=== PATIENT | male | born 1955 | race Two or more races ===

== ENCOUNTER 2020-05-21 17:01 | Emergency (ER) | payer OTHER ==
[~2020-05-21] VITALS: Ht 170.2 cm; Wt 74.4 kg
[2020-05-21] MEDS ORDERED: GLUMETZA500 MG (17:20)
[2020-05-21] MEDS ORDERED: JANUVIA50 MG (17:20)
[2020-05-21] MEDS ORDERED: MELATONIN 10 M1 EACH PO (23:40)
[2020-05-21] MEDS ORDERED: VITAMIN D3-ALO1 EACH PO (23:40)
[2020-05-21] MEDS ORDERED: IVERMECTIN3 MG PO (23:40)
[2020-05-21] MEDS ORDERED: ACETAMINOPHEN650 M2 PO (23:40)
[2020-05-21] MEDS ORDERED: AZITHROMYCIN250 MG PO (23:40)
[2020-05-21] MEDS ORDERED: ZINC SULFATE220 M2 PO (23:40)
[2020-05-21] MEDS ORDERED: VITAMIN C WIT1000 MG PO (23:40)
[2020-05-21] MEDS ORDERED: DECADRON6 MG PO (23:40)
== END 2020-05-21 23:28 | disposition home or self-care (01) ==
LOC: ER 17:01
DX: U07.1 COVID-19 (principal); J12.89 Other viral pneumonia; B33.8 Other specified viral diseases; J06.9 Acute upper respiratory infection, unspecified

== ENCOUNTER 2021-03-27 07:37 | Outpatient (CLI) | payer OTHER ==
[~2021-03-27 07:37] MED LIST: ACETAMINOPHEN650 M2 PO; AZITHROMYCIN250 MG PO; DECADRON6 MG PO; GLUMETZA500 MG; IVERMECTIN3 MG PO; JANUVIA50 MG; MELATONIN 10 M1 EACH PO; VITAMIN C WIT1000 MG PO; VITAMIN D3-ALO1 EACH PO; ZINC SULFATE220 M2 PO
== END 2021-03-27 07:42 | disposition home or self-care (01) ==
LOC: SONOGRAMA 07:37 → MAMO-SONO 07:45
PROVIDERS: ATTEND Internal Medicine Cardiovascular Disease
DX: N13.39 Other hydronephrosis (principal); R10.84 Generalized abdominal pain

== ENCOUNTER 2021-04-30 10:32 | Outpatient (CLI) | payer OTHER | END 2021-04-30 10:45 | disposition home or self-care (01) | LOC: TOM 10:32 | PROVIDERS: ATTEND Urology | DX: N13.1 Hydronephrosis with ureteral stricture, not elsewhere classified (principal); N20.1 Calculus of ureter ==

== ENCOUNTER 2021-05-05 08:00 | Outpatient (CLI) | payer OTHER | END 2021-05-05 08:30 | disposition home or self-care (01) | LOC: PPH VACUNA 08:00 | PROVIDERS: ATTEND Emergency Medicine Pediatric Emergency Medicine | DX: Z23 Encounter for immunization (principal) ==

== ENCOUNTER 2021-06-19 07:59 | Outpatient (CLI) | payer OTHER | END 2021-06-19 08:12 | disposition home or self-care (01) | LOC: SONOGRAMA 07:59 | PROVIDERS: ATTEND Urology | DX: N40.1 Benign prostatic hyperplasia with lower urinary tract symptoms (principal) ==

== ENCOUNTER 2021-07-08 08:38 | Outpatient (CLI) | payer OTHER | END 2021-07-08 08:57 | disposition home or self-care (01) | LOC: SONOGRAMA 08:38 | PROVIDERS: ATTEND Urology | DX: R13.10 Dysphagia, unspecified (principal) ==

== ENCOUNTER 2021-08-24 10:50 | Outpatient (CLI) | payer OTHER | END 2021-08-24 11:05 | disposition home or self-care (01) | LOC: SONOGRAMA 10:50 | PROVIDERS: ATTEND Urology | DX: N13.1 Hydronephrosis with ureteral stricture, not elsewhere classified (principal) ==

== ENCOUNTER 2022-12-13 10:18 | Outpatient (CLI) | payer OTHER | END 2022-12-13 10:23 | disposition home or self-care (01) | LOC: RAD 10:18 | PROVIDERS: ATTEND Urology | DX: Z01.818 Encounter for other preprocedural examination (principal); R97.20 Elevated prostate specific antigen [PSA] ==

== ENCOUNTER 2023-03-09 10:29 | Outpatient (CLI) | payer OTHER | END 2023-03-09 10:40 | disposition home or self-care (01) | LOC: TOM 10:29 | PROVIDERS: ATTEND Urology | DX: C61 Malignant neoplasm of prostate (principal) ==

== ENCOUNTER 2023-08-27 00:54 | Emergency (ER) | payer OTHER ==
[~2023-08-27] VITALS: Ht 170.2 cm; Wt 73.9 kg
[2023-08-27] MEDS ORDERED: ATACAND32 MG PO (01:15)
[2023-08-27] MEDS ORDERED: JANUMET 50-1,01 EACH PO (01:15)
[2023-08-27] MEDS ORDERED: TOPROL XL50 M1 PO (01:16)
[2023-08-27] MEDS ORDERED: ATORVASTATIN CA10 MG PO (01:18)
[2023-08-27] MEDS ORDERED: INSULIN REGULAR, HUMAN 1,000 UNIT/10 ML UNITS SUBCUTANEO STA (02:19)
[2023-08-27 03:16] LABS: CALCIUM 9.4 mg/dL (8.5-10.1); CREATININE SERUM 1.41 mg/dL (0.70-1.30); GFR 49.84; POTASSIUM 4.66 mEq/L (3.5-5.1)
== END 2023-08-27 03:37 | disposition home or self-care (01) ==
LOC: ER 00:54
DX: I10 Essential (primary) hypertension (principal); E11.9 Type 2 diabetes mellitus without complications; Z79.84 Long term (current) use of oral hypoglycemic drugs